=== PATIENT | male | born 1935 | race Caucasian/White ===

== ENCOUNTER 2022-12-30 21:01 | Inpatient (IN) | payer MEDICARE, BC ==
[2022-12-30] MEDS ORDERED: Sodium Chloride 0.9% 1,000 ML IV ONE (21:24)
[2022-12-30 22:02] LABS: BASOPHILS ABSOLUTE AUTO 0.05 K/mm3 (0.01-0.08); BASOPHILS PERCENT AUTO 0.5 % (0.1-1.2); EOSINOPHILS ABSOLUTE AUTO 0.01 K/mm3 (0.04-0.54); EOSINOPHILS PERCENT AUTO 0.1 (0.8-7.0); HEMOGLOBIN 13.7 gm/dl (13.7-17.5); IMMATURE GRAN ABSOLUTE AUTO 0.06 K/mm3 (0.00-0.10); IMMATURE GRAN PERCENT AUTO 0.6 % (<=1.0); LYMPHOCYTES ABSOLUTE AUTO 0.99 K/mm3 (1.32-3.57); LYMPHOCYTES PERCENT AUTO 10.2 % (21.8-53.1); MEAN CORPUSCULAR HEMOGLOBIN 34.8 pg (25.7-32.2); MEAN CORPUSCULAR HGB CONC 32.6 g/dl (32.2-35.5); MEAN CORPUSCULAR VOLUME 106.6 fl (79.0-92.2); MEAN PLATELET VOLUME 9.7 fl (9.4-12.3); MONOCYTES ABSOLUTE AUTO 1.15 K/mm3 (0.30-0.82); MONOCYTES PERCENT AUTO 11.8 % (5.3-12.2); NEUTROPHILS ABSOLUTE AUTO 7.47 K/mm3 (1.78-5.38); NEUTROPHILS PERCENT AUTO 76.8 % (34.0-67.9); PLATELET COUNT,PLT 142 K/mm3 (163-337); RED BLOOD CELL COUNT 3.94 M/mm3 (4.63-6.08); WHITE BLOOD CELL COUNT,WBC 9.73 K/mm3 (4.23-9.07)
[2022-12-30 22:41] LABS: APPEARANCE,URINE CLOUDY (Clear); BILIRUBIN,URINE NEGATIVE (Negative); COLOR,URINE PINK (Yellow); GLUCOSE,URINE NEGATIVE (Negative); KETONES,URINE NEGATIVE (Negative); LEUKOCYTE ESTERASE,URINE 3+ (Negative); NITRITE,URINE POSITIVE (Negative); OCCULT BLOOD,URINE 3+ (Negative); PROTEIN,URINE 2+ (Negative); UROBILINOGEN,URINE 0.2 (0.2-1.0)
[2022-12-30 22:43] LABS: INR 1.94; PROTHROMBIN TIME 19.8 SECONDS (9.7-12.0)
[2022-12-30 22:46] LABS: A/G RATIO 0.7 (1-2); ALBUMIN 3.3 g/dl (3.4-5.0); ANION GAP 11.6 (5-15); BILIRUBIN TOTAL 0.7 mg/dL (0.2-1.0); CALCIUM 8.9 mg/dL (8.5-10.1); CREATININE 3.2 mg/dL (0.7-1.3); EST CRCL DRUG DOSING (CG) 12.84 mL/min; POTASSIUM,K 3.6 mEq/L (3.5-5.1); PROTEIN TOTAL,TP 8.2 g/dl (6.4-8.2)
[2022-12-30 22:56] LABS: BACTERIA,URINE MANY /hpf (FEW); EPITHELIAL CELLS,URINE NOT SEEN /hpf (0-5); MUCUS,URINE NOT SEEN /hpf (FEW); RBC,URINE 20-30 /hpf (0-5); WBC CLUMPS,URINE MODERATE /hpf (NOT SEEN); WBC,URINE >100 /hpf (0-5)
[2022-12-30] MEDS ORDERED: cefTRIAXone 1 GM in Sodium Chloride 0.9% 100 ML IV ONE (23:00)
[2022-12-30] MEDS ORDERED: Piperacillin/Tazobactam 4.5 GM in Sodium Chloride 0.9% 100 ML IV ONE (23:10)
[2022-12-31] MEDS ORDERED: Sodium Chloride 0.9% 500 ML IV SCH (00:45)
[2022-12-31 06:58] LABS: BASOPHILS ABSOLUTE AUTO 0.04 K/mm3 (0.01-0.08); BASOPHILS PERCENT AUTO 0.5 % (0.1-1.2); EOSINOPHILS PERCENT AUTO 0 (0.8-7.0); HEMATOCRIT 37.8 % (40.1-51.0); HEMOGLOBIN 12.3 gm/dl (13.7-17.5); IMMATURE GRAN ABSOLUTE AUTO 0.03 K/mm3 (0.00-0.10); IMMATURE GRAN PERCENT AUTO 0.4 % (<=1.0); LYMPHOCYTES ABSOLUTE AUTO 0.68 K/mm3 (1.32-3.57); LYMPHOCYTES PERCENT AUTO 8.5 % (21.8-53.1); MEAN CORPUSCULAR HEMOGLOBIN 34.9 pg (25.7-32.2); MEAN CORPUSCULAR HGB CONC 32.5 g/dl (32.2-35.5); MEAN CORPUSCULAR VOLUME 107.4 fl (79.0-92.2); MEAN PLATELET VOLUME 10.4 fl (9.4-12.3); MONOCYTES ABSOLUTE AUTO 0.68 K/mm3 (0.30-0.82); MONOCYTES PERCENT AUTO 8.5 % (5.3-12.2); NEUTROPHILS ABSOLUTE AUTO 6.58 K/mm3 (1.78-5.38); NEUTROPHILS PERCENT AUTO 82.1 % (34.0-67.9); PLATELET COUNT,PLT 127 K/mm3 (163-337); RED BLOOD CELL COUNT 3.52 M/mm3 (4.63-6.08); WHITE BLOOD CELL COUNT,WBC 8.01 K/mm3 (4.23-9.07)
[2022-12-31 07:14] LABS: ANION GAP 10.1 (5-15); BUN/CREATININE RATIO 27.7 (14-18); CALCIUM 8.5 mg/dL (8.5-10.1); CREATININE 3.1 mg/dL (0.7-1.3); EST CRCL DRUG DOSING (CG) 13.79 mL/min; POTASSIUM,K 3.1 mEq/L (3.5-5.1)
[2022-12-31] MEDS ORDERED: Piperacillin/Tazobactam 4.5 GM in Sodium Chloride 0.9% 100 ML IV ONE (07:30)
[2022-12-31] MEDS ORDERED: Piperacillin/Tazobactam 4.5 GM in Sodium Chloride 0.9% 100 ML IV SCH ×4 (07:30)
[2022-12-31] MEDS ORDERED: Potassium Chloride 20 MEQ Tab.ER PO ONE ×3 (08:34→16:00)
[2022-12-31] MEDS ORDERED: Triamcinolone Acetonide 0.1% Crm 15 GM Tube TOP PRN (09:27)
[2022-12-31] MEDS ORDERED: Acetaminophen 325 MG Tab PO PRN (09:27)
[2022-12-31] MEDS ORDERED: Albuterol 6.7 GM Inhaler INH PRN (09:27)
[2022-12-31] MEDS ORDERED: Metolazone 2.5 MG Tab PO PRN (10:00)
[2022-12-31] MEDS: Formoterol/Mometasone 200-5 MCG 8.8 GM Inhaler IH SCH ×2 (10:13→20:05)
[2022-12-31] MEDS: Torsemide 20 MG Tab PO SCH ×2 (10:29→20:19)
[2022-12-31] MEDS: Piperacillin/Tazobactam 4.5 GM in Sodium Chloride 0.9% 100 ML IV SCH ×2 (10:29→23:23)
[2022-12-31] MEDS: Dorzolamide/Timolol 2%-0.5% Ophth Soln 10 ML Bottle EYERT SCH ×2 (10:29→20:21)
[2022-12-31] MEDS: Metoprolol Tartrate 25 MG Tab PO SCH ×2 (10:32→20:19)
[2022-12-31] MEDS: Cholecalciferol (Vitamin D3) 25 MCG Tab PO SCH (10:32)
[2022-12-31] MEDS: Multivitamin Tab PO SCH (10:33)
[2022-12-31] MEDS: Finasteride 5 MG Tab PO SCH (10:34)
[2022-12-31] MEDS: Ferrous Sulfate 324 MG Tab.EC PO SCH (10:34)
[2022-12-31 11:00] LABS: INR 1.79; PROTHROMBIN TIME 18.3 SECONDS (9.7-12.0)
[2022-12-31] MEDS: Carboxymethylcellulose Sodium 1% Ophth Gel 15 ML Bottle EYERT SCH ×3 (12:39→20:21)
[2022-12-31] MEDS: Gabapentin 300 MG Cap PO SCH ×2 (16:46→20:19)
[2022-12-31] MEDS: Brimonidine 0.2% Ophth Soln 15 ML Bottle EYERT SCH ×2 (16:46→20:21)
[2022-12-31] MEDS ORDERED: Warfarin 3 MG Tab PO SCH (18:00)
[2022-12-31] MEDS: Tamsulosin 0.4 MG Cap.ER PO SCH (20:19)
[2022-12-31] MEDS: Latanoprost 0.005% Ophth Soln 2.5 ML Bottle EYERT SCH (20:21)
[2023-01-01 05:35] LABS: BASOPHILS ABSOLUTE AUTO 0.04 K/mm3 (0.01-0.08); BASOPHILS PERCENT AUTO 0.6 % (0.1-1.2); EOSINOPHILS ABSOLUTE AUTO 0.02 K/mm3 (0.04-0.54); EOSINOPHILS PERCENT AUTO 0.3 (0.8-7.0); HEMATOCRIT 37.5 % (40.1-51.0); HEMOGLOBIN 12.1 gm/dl (13.7-17.5); IMMATURE GRAN ABSOLUTE AUTO 0.06 K/mm3 (0.00-0.10); IMMATURE GRAN PERCENT AUTO 0.9 % (<=1.0); MEAN CORPUSCULAR HEMOGLOBIN 35.1 pg (25.7-32.2); MEAN CORPUSCULAR HGB CONC 32.3 g/dl (32.2-35.5); MEAN CORPUSCULAR VOLUME 108.7 fl (79.0-92.2); MEAN PLATELET VOLUME 10.3 fl (9.4-12.3); MONOCYTES ABSOLUTE AUTO 0.75 K/mm3 (0.30-0.82); MONOCYTES PERCENT AUTO 11.2 % (5.3-12.2); NEUTROPHILS ABSOLUTE AUTO 4.61 K/mm3 (1.78-5.38); PLATELET COUNT,PLT 106 K/mm3 (163-337); RED BLOOD CELL COUNT 3.45 M/mm3 (4.63-6.08); WHITE BLOOD CELL COUNT,WBC 6.68 K/mm3 (4.23-9.07)
[2023-01-01 05:57] LABS: INR 1.61; PROTHROMBIN TIME 16.6 SECONDS (9.7-12.0)
[2023-01-01 06:06] LABS: A/G RATIO 0.6 (1-2); ALBUMIN 2.5 g/dl (3.4-5.0); ANION GAP 12.7 (5-15); BILIRUBIN TOTAL 0.7 mg/dL (0.2-1.0); BUN/CREATININE RATIO 23.7 (14-18); CALCIUM 8.5 mg/dL (8.5-10.1); EST CRCL DRUG DOSING (CG) 14.25 mL/min; MAGNESIUM 2.4 mg/dL (1.8-2.4); POTASSIUM,K 3.7 mEq/L (3.5-5.1); PROTEIN TOTAL,TP 6.8 g/dl (6.4-8.2)
[2023-01-01 06:46] LABS: C-REACTIVE PROTEIN 16.6 mg/dL (<1.0)
[2023-01-01] MEDS: Dorzolamide/Timolol 2%-0.5% Ophth Soln 10 ML Bottle EYERT SCH ×2 (12:40→20:08)
[2023-01-01] MEDS: Potassium Chloride 20 MEQ Tab.ER PO SCH (12:40)
[2023-01-01] MEDS: Torsemide 20 MG Tab PO SCH ×2 (12:40→20:08)
[2023-01-01] MEDS: Brimonidine 0.2% Ophth Soln 15 ML Bottle EYERT SCH ×3 (12:40→20:08)
[2023-01-01] MEDS: Metoprolol Tartrate 25 MG Tab PO SCH ×2 (12:40→20:09)
[2023-01-01] MEDS: Formoterol/Mometasone 200-5 MCG 8.8 GM Inhaler IH SCH ×2 (12:40→20:15)
[2023-01-01] MEDS: Gabapentin 300 MG Cap PO SCH ×3 (12:41→20:09)
[2023-01-01] MEDS: Finasteride 5 MG Tab PO SCH (12:42)
[2023-01-01] MEDS: Multivitamin Tab PO SCH (12:42)
[2023-01-01] MEDS: Cholecalciferol (Vitamin D3) 25 MCG Tab PO SCH (12:42)
[2023-01-01] MEDS: Carboxymethylcellulose Sodium 1% Ophth Gel 15 ML Bottle EYERT SCH ×4 (12:42→20:08)
[2023-01-01] MEDS: Piperacillin/Tazobactam 4.5 GM in Sodium Chloride 0.9% 100 ML IV SCH ×2 (12:42→23:13)
[2023-01-01] MEDS ORDERED: Warfarin 5 MG Tab PO SCH (17:30)
[2023-01-01] MEDS ORDERED: Warfarin 3 MG Tab PO SCH (18:00)
[2023-01-01 18:10] LABS: INR 1.55; PROTHROMBIN TIME 16.1 SECONDS (9.7-12.0)
[2023-01-01] MEDS: Latanoprost 0.005% Ophth Soln 2.5 ML Bottle EYERT SCH (20:08)
[2023-01-01] MEDS: Tamsulosin 0.4 MG Cap.ER PO SCH (20:09)
[2023-01-02 05:18] LABS: BASOPHILS ABSOLUTE AUTO 0.04 K/mm3 (0.01-0.08); BASOPHILS PERCENT AUTO 0.5 % (0.1-1.2); EOSINOPHILS ABSOLUTE AUTO 0.33 K/mm3 (0.04-0.54); EOSINOPHILS PERCENT AUTO 4.3 (0.8-7.0); HEMATOCRIT 36.9 % (40.1-51.0); HEMOGLOBIN 11.9 gm/dl (13.7-17.5); IMMATURE GRAN ABSOLUTE AUTO 0.06 K/mm3 (0.00-0.10); IMMATURE GRAN PERCENT AUTO 0.8 % (<=1.0); LYMPHOCYTES ABSOLUTE AUTO 1.72 K/mm3 (1.32-3.57); LYMPHOCYTES PERCENT AUTO 22.4 % (21.8-53.1); MEAN CORPUSCULAR HEMOGLOBIN 34.7 pg (25.7-32.2); MEAN CORPUSCULAR HGB CONC 32.2 g/dl (32.2-35.5); MEAN CORPUSCULAR VOLUME 107.6 fl (79.0-92.2); MEAN PLATELET VOLUME 10.5 fl (9.4-12.3); MONOCYTES ABSOLUTE AUTO 1.18 K/mm3 (0.30-0.82); MONOCYTES PERCENT AUTO 15.3 % (5.3-12.2); NEUTROPHILS ABSOLUTE AUTO 4.36 K/mm3 (1.78-5.38); NEUTROPHILS PERCENT AUTO 56.7 % (34.0-67.9); PLATELET COUNT,PLT 115 K/mm3 (163-337); RED BLOOD CELL COUNT 3.43 M/mm3 (4.63-6.08); WHITE BLOOD CELL COUNT,WBC 7.69 K/mm3 (4.23-9.07)
[2023-01-02 05:56] LABS: INR 1.75
[2023-01-02 06:00] LABS: A/G RATIO 0.6 (1-2); ALBUMIN 2.3 g/dl (3.4-5.0); ANION GAP 13.2 (5-15); BILIRUBIN TOTAL 0.5 mg/dL (0.2-1.0); BUN/CREATININE RATIO 24.8 (14-18); CALCIUM 8.5 mg/dL (8.5-10.1); CREATININE 3.1 mg/dL (0.7-1.3); EST CRCL DRUG DOSING (CG) 13.79 mL/min; POTASSIUM,K 3.2 mEq/L (3.5-5.1); PROTEIN TOTAL,TP 6.5 g/dl (6.4-8.2)
[2023-01-02] MEDS: Formoterol/Mometasone 200-5 MCG 8.8 GM Inhaler IH SCH ×2 (08:18→20:47)
[2023-01-02] MEDS: Dorzolamide/Timolol 2%-0.5% Ophth Soln 10 ML Bottle EYERT SCH ×2 (08:38→20:24)
[2023-01-02] MEDS: Brimonidine 0.2% Ophth Soln 15 ML Bottle EYERT SCH ×3 (08:38→20:24)
[2023-01-02] MEDS: Torsemide 20 MG Tab PO SCH ×2 (08:39→20:29)
[2023-01-02] MEDS: Metoprolol Tartrate 25 MG Tab PO SCH ×2 (08:39→20:29)
[2023-01-02] MEDS: Cholecalciferol (Vitamin D3) 25 MCG Tab PO SCH (08:40)
[2023-01-02] MEDS: Gabapentin 300 MG Cap PO SCH ×3 (08:40→20:29)
[2023-01-02] MEDS: Finasteride 5 MG Tab PO SCH (08:40)
[2023-01-02] MEDS: Potassium Chloride 20 MEQ Tab.ER PO SCH (08:40)
[2023-01-02] MEDS: Multivitamin Tab PO SCH (08:41)
[2023-01-02] MEDS: Carboxymethylcellulose Sodium 1% Ophth Gel 15 ML Bottle EYERT SCH ×4 (10:05→20:24)
[2023-01-02] MEDS: Piperacillin/Tazobactam 4.5 GM in Sodium Chloride 0.9% 100 ML IV SCH ×2 (11:31→23:13)
[2023-01-02] MEDS ORDERED: Warfarin 3 MG Tab PO SCH (18:00)
[2023-01-02] MEDS: Latanoprost 0.005% Ophth Soln 2.5 ML Bottle EYERT SCH (20:23)
[2023-01-02] MEDS: Tamsulosin 0.4 MG Cap.ER PO SCH (20:29)
[2023-01-03 05:25] LABS: BASOPHILS ABSOLUTE AUTO 0.05 K/mm3 (0.01-0.08); BASOPHILS PERCENT AUTO 0.7 % (0.1-1.2); EOSINOPHILS ABSOLUTE AUTO 0.39 K/mm3 (0.04-0.54); EOSINOPHILS PERCENT AUTO 5.3 (0.8-7.0); HEMATOCRIT 37.2 % (40.1-51.0); IMMATURE GRAN ABSOLUTE AUTO 0.07 K/mm3 (0.00-0.10); IMMATURE GRAN PERCENT AUTO 0.9 % (<=1.0); LYMPHOCYTES ABSOLUTE AUTO 1.85 K/mm3 (1.32-3.57); MEAN CORPUSCULAR HEMOGLOBIN 34.4 pg (25.7-32.2); MEAN CORPUSCULAR HGB CONC 32.3 g/dl (32.2-35.5); MEAN CORPUSCULAR VOLUME 106.6 fl (79.0-92.2); MEAN PLATELET VOLUME 10.7 fl (9.4-12.3); MONOCYTES ABSOLUTE AUTO 1.08 K/mm3 (0.30-0.82); MONOCYTES PERCENT AUTO 14.6 % (5.3-12.2); NEUTROPHILS ABSOLUTE AUTO 3.95 K/mm3 (1.78-5.38); NEUTROPHILS PERCENT AUTO 53.5 % (34.0-67.9); PLATELET COUNT,PLT 121 K/mm3 (163-337); RED BLOOD CELL COUNT 3.49 M/mm3 (4.63-6.08); WHITE BLOOD CELL COUNT,WBC 7.39 K/mm3 (4.23-9.07)
[2023-01-03 05:56] LABS: A/G RATIO 0.6 (1-2); ALBUMIN 2.4 g/dl (3.4-5.0); ANION GAP 11.1 (5-15); BILIRUBIN TOTAL 0.5 mg/dL (0.2-1.0); BUN/CREATININE RATIO 27.4 (14-18); CALCIUM 8.4 mg/dL (8.5-10.1); CREATININE 3.1 mg/dL (0.7-1.3); EST CRCL DRUG DOSING (CG) 13.79 mL/min; INR 2.06; POTASSIUM,K 3.1 mEq/L (3.5-5.1); PROTEIN TOTAL,TP 6.7 g/dl (6.4-8.2); PROTHROMBIN TIME 20.9 SECONDS (9.7-12.0)
[2023-01-03] MEDS: Formoterol/Mometasone 200-5 MCG 8.8 GM Inhaler IH SCH (09:05)
[2023-01-03] MEDS: Torsemide 20 MG Tab PO SCH (09:47)
[2023-01-03] MEDS: Ferrous Sulfate 324 MG Tab.EC PO SCH (09:47)
[2023-01-03] MEDS: Potassium Chloride 20 MEQ Tab.ER PO SCH (09:47)
[2023-01-03] MEDS: Metoprolol Tartrate 25 MG Tab PO SCH (09:47)
[2023-01-03] MEDS: Cholecalciferol (Vitamin D3) 25 MCG Tab PO SCH (09:48)
[2023-01-03] MEDS: Multivitamin Tab PO SCH (09:48)
[2023-01-03] MEDS: Finasteride 5 MG Tab PO SCH (09:48)
[2023-01-03] MEDS: Gabapentin 300 MG Cap PO SCH (09:49)
[2023-01-03] MEDS: Carboxymethylcellulose Sodium 1% Ophth Gel 15 ML Bottle EYERT SCH (09:49)
[2023-01-03] MEDS: Dorzolamide/Timolol 2%-0.5% Ophth Soln 10 ML Bottle EYERT SCH (09:49)
[2023-01-03] MEDS: Brimonidine 0.2% Ophth Soln 15 ML Bottle EYERT SCH (09:50)
[2023-01-03] MEDS: Piperacillin/Tazobactam 4.5 GM in Sodium Chloride 0.9% 100 ML IV SCH (10:52)
[2023-01-03] MEDS ORDERED: Warfarin 3 MG Tab PO SCH (18:00)
== END 2023-01-03 12:30 | DRG 699 ==
LOC: JD.ED 21:01 → JD.MS 23:24
PROVIDERS: ADMIT Hospitalist; ATTEND Hospitalist
DX: T83.511A Infection and inflammatory reaction due to indwelling urethral catheter, initial encounter (principal); I13.0 Hypertensive heart and chronic kidney disease with heart failure and stage 1 through stage 4 chronic kidney disease, or unspecified chronic kidney disease; N18.4 Chronic kidney disease, stage 4 (severe); N39.0 Urinary tract infection, site not specified; I50.9 Heart failure, unspecified; E86.0 Dehydration; C67.9 Malignant neoplasm of bladder, unspecified; E87.6 Hypokalemia; R63.0 Anorexia; J45.909 Unspecified asthma, uncomplicated; B96.20 Unspecified Escherichia coli [E. coli] as the cause of diseases classified elsewhere; Z90.49 Acquired absence of other specified parts of digestive tract; Z66 Do not resuscitate; Z87.891 Personal history of nicotine dependence; Z79.899 Other long term (current) drug therapy; Z68.37 Body mass index [BMI] 37.0-37.9, adult; Y83.1 Surgical operation with implant of artificial internal device as the cause of abnormal reaction of the patient, or of later complication, without mention of misadventure at the time of the procedure; Z79.01 Long term (current) use of anticoagulants; Z86.718 Personal history of other venous thrombosis and embolism; Y84.6 Urinary catheterization as the cause of abnormal reaction of the patient, or of later complication, without mention of misadventure at the time of the procedure
CPT/HCPCS: 36415; 51702; 71045; 80053; 81001; 83605; 85025; 85610; 87040; 87077; 87086; 87088; 87154; 87186 ×2; 96361; 96374; 99285; J2543; J3490; J7030; 80048; 83735; 86140; 94640; 94760; 94761; 97162-GP; 97530-GP; A9270-GY